=== PATIENT | female | born 1955 | race African-American/Black ===

== ENCOUNTER → 2018-04-26 | Outpatient (REF) | payer MEDICARE, OTHER | LOC: M SFHCLERA 11:08 | DX: R35.0 Frequency of micturition (principal) | CPT/HCPCS: 87086 ==

== ENCOUNTER → 2018-05-03 | Outpatient (REF) | payer MEDICARE, OTHER | LOC: M SFHCLERA 12:15 | DX: R30.0 Dysuria (principal) | CPT/HCPCS: 87186 ==

== ENCOUNTER → 2018-05-14 | Outpatient (REF) | payer MEDICARE, OTHER | LOC: M SFHCLERA 17:35 | DX: J02.9 Acute pharyngitis, unspecified (principal) ==

== ENCOUNTER → 2019-11-16 | Outpatient (REF) | payer MEDICARE, OTHER | LOC: M LABDRAW1 14:54 | PROVIDERS: ATTEND Internal Medicine Cardiovascular Disease | DX: Z86.74 Personal history of sudden cardiac arrest (principal); Z95.810 Presence of automatic (implantable) cardiac defibrillator ==

== ENCOUNTER → 2020-05-11 | Outpatient (CLI) | payer SELFPAY | LOC: M LABSMTC 13:08 | PROVIDERS: ATTEND Pediatrics | DX: Z20.828 Contact with and (suspected) exposure to other viral communicable diseases (principal) ==

== ENCOUNTER → 2020-08-23 | Outpatient (CLI) | payer SELFPAY | LOC: M LABSMTC 13:59 | PROVIDERS: ATTEND Pediatrics | DX: Z11.59 Encounter for screening for other viral diseases (principal) ==

== ENCOUNTER → 2020-09-04 | Outpatient (CLI) | payer SELFPAY | LOC: M LABSMTC 11:40 | PROVIDERS: ATTEND Pediatrics | DX: Z20.828 Contact with and (suspected) exposure to other viral communicable diseases (principal) ==